=== PATIENT | female | born 1985 | race Caucasian/White ===

== ENCOUNTER 2016-08-06 09:57 | Emergency (ER) | payer MEDICAID ==
[~2016-08-06] VITALS: Ht 154.9 cm; Wt 49.4 kg
[2016-08-06] MEDS ORDERED: IV NS 0.9% 1,000 ML BAG IV ONE ×2 (11:00→12:30)
[2016-08-06] MEDS ORDERED: LORAZEPAM 1 MG TABLET PO ONE ×2 (11:00→14:30)
[2016-08-06] MEDS ORDERED: ASPIRIN 325 MG TABLET PO ONE (11:00)
[2016-08-06] MEDS ORDERED: ASPIRIN 325 MG TABLET ONE (11:01)
[2016-08-06] MEDS ORDERED: IV NS 0.9% 1,000 ML ONE ×2 (11:02→12:42)
[2016-08-06] MEDS ORDERED: IV SET PRIMARY 1 EA INFUS.SET MC ONE ×2 (11:02→12:42)
[2016-08-06] MEDS ORDERED: LORAZEPAM 1 MG TABLET ONE ×2 (11:02→14:18)
--- NOTE | 2016-08-06 11:05 | NUR ---
PT BIB SELF C/O MIDSTERNAL CP, ACHY IN CHARACTER 7/10 RADIATING TO BACK, NON-PROVOKED, SINCE LAST NIGHT. ALSO C/O INTERMITTENT HEADACHE SINCE THURSDAY. PT REPORTS SIGNIFICANT HISTORY OF ANXIETY WHICH SHE IS "WORKING TO CONTROL". SKIN WARM NONDIAPHORETIC. RESP EVEN UNLABORED. NAD NOTED. IN ER BED 09 ON MONITOR.
[2016-08-06 11:12] LABS: BASOPHILS # (AUTO) 0.2 /CMM (0.0-0.2); BASOPHILS % (AUTO) 1.5 % (0.0-2.0); EOSINOPHILS # (AUTO) 0.2 /CMM (0.0-0.7); EOSINOPHILS % (AUTO) 1.4 % (0.0-6.0); HEMATOCRIT 43 % (33-45); HEMOGLOBIN 14.6 g/dL (11.5-14.8); LYMPHOCYTES # (AUTO) 0.6 /CMM (0.8-4.8); LYMPHOCYTES % (AUTO) 4.2 % (20.0-44.0); MEAN CORPUSCULAR HEMOGLOBIN 31 PG (26.0-33.0); MEAN CORPUSCULAR HGB CONC 34 g/dl (31.0-36.0); MEAN CORPUSCULAR VOLUME 90 fL (82-100); MONOCYTES # (AUTO) 0.4 /CMM (0.1-1.30); MONOCYTES % (AUTO) 2.8 % (2.0-12.0); NEUTROPHILS # (AUTO) 11.9 /CMM (1.8-8.9); NEUTROPHILS % (AUTO) 90.1 % (43.0-81.0); PLATELET COUNT (AUTO) 242 /CMM (150-450); RDW COEFFICIENT OF VARIATION 11.9 (11.5-15.0); RED BLOOD CELL COUNT(AUTO) 4.78 MIL/uL (4.0-5.2); WHITE BLOOD COUNT (AUTO) 13.3 K/uL (4.3-11.0)
[2016-08-06 11:16] LABS: CALCIUM, SERUM 8.8 mg/dL (8.5-10.1); CARBON DIOXIDE 26 mmol/L (21-32); CHLORIDE 103 mmol/L (98-107); GLUCOSE 100 mg/dL (74-106); POTASSIUM 4.2 mmol/L (3.5-5.1); SODIUM SERUM 137 mmol/L (136-145); UREA NITROGEN, BLOOD 10 mg/dL (7-18)
[2016-08-06 11:21] LABS: ALANINE AMINOTRANSFERASE 7 U/L (12-78); ALBUMIN 4.6 g/dL (3.4-5.0); ASPARTATE AMINOTRANSFERASE 17 U/L (15-37); BILIRUBIN,DIRECT 0.1 mg/dL (0.0-0.2); BILIRUBIN,TOTAL 0.8 mg/dL (0.2-1.0); TOTAL PROTEIN, SERUM 8.5 g/dL (6.4-8.2)
[2016-08-06 11:23] LABS: TROPONIN I < 0.017 ng/mL (0.00-0.056)
[2016-08-06 11:34] LABS: D-DIMER 1.89 mg/L(FEU (0.17-0.50); INR 0.98 (0.87-1.13); PROTHROMBIN TIME 10.5 SECS (9.5-12.7)
[2016-08-06 11:36] LABS: ALKALINE PHOSPHATASE 48 U/L (46-116)
[2016-08-06 11:39] LABS: APPEARANCE,URINE Slightly Cloudy (CLEAR); BILIRUBIN,URINE SMALL (NEGATIVE); BLOOD, URINE Moderate Ery/uL (NEGATIVE); COLOR,URINE Yellow (YELLOW); KETONES,URINE 80 (NEGATIVE); LEUKOCYTE ESTERASE ,URINE Negative (NEGATIVE); NITRITE, URINE Negative (NEGATIVE); PROTEIN,URINE 30 mg/dl (NEGATIVE); UGLUCOSE Negative (NEGATIVE); UROBILINOGEN,URINE 0.2 EU/dL (0.2)
[2016-08-06 11:49] LABS: BACTERIA,URINE None seen /HPF (None Seen); SQUAMOUS EPITHELIAL CELL,UR Moderate /HPF (None Seen)
[2016-08-06 11:50] LABS: MUCUS,URINE Rare /LPF (None Seen)
--- NOTE | 2016-08-06 12:08 | NUR ---
RESTING QUIETLY, NAD NOTED. REPORTS NO CHANGE IN PAIN. MD NOTIFIED.
[2016-08-06] MEDS ORDERED: MORPHINE SULFATE INJ 4 MG/ML DISP.SYRIN ONE (12:13)
[2016-08-06] MEDS ORDERED: ONDANSETRON HCL/PF 4 MG/2 ML VIAL ONE (12:13)
[2016-08-06] MEDS ORDERED: IV NS 0.9% 250 ML IV ONE (12:28)
[2016-08-06] MEDS ORDERED: CT SWABBABLE VALVE TRANS SET 1 EA INFUS.SET MC ONE (12:28)
[2016-08-06] MEDS ORDERED: IOHEXOL-350 100 ML VIAL IV ONE (12:28)
[2016-08-06] MEDS ORDERED: MORPHINE SULFATE INJ 2 MG/ML DISP.SYRIN IV ONE (12:30)
[2016-08-06] MEDS ORDERED: ONDANSETRON HCL/PF 4 MG/2 ML VIAL IV ONE (12:30)
--- NOTE | 2016-08-06 12:32 | NUR ---
PT TRANSPORTED TO CT IN STABLE CONDITION
[2016-08-06 12:57] LABS: BAND % (MANUAL) 1 % (0.0-5.0); LYMPHOCYTES % (MANUAL) 3 % (16-48); MONOCYTES % (MANUAL) 5 % (0-11.0); NEUTROPHILS % (MANUAL) 91 (42-76)
--- NOTE | 2016-08-06 13:35 | NUR ---
RESTING QUIETLY, REPORTS ADEQUATE RELIEF OF PAIN WITH MEDICATION ORDERED
[2016-08-06 15:14] VITALS: BP 128/70
--- NOTE | 2016-08-06 15:16 | NUR ---
IV removed. Catheter intact and site benign. Pressure and 4x4 applied to site. No bleeding noted. Patient discharged to home in stable condition. Written and verbal after care instructions given. Patient verbalizes understanding of instruction. AMBULATORY WITH STEADY GAIT.
== END 2016-08-06 15:15 | disposition home or self-care (01) ==
LOC: ER 09:59
DX: R07.89 Other chest pain (principal); R00.0 Tachycardia, unspecified; R79.1 Abnormal coagulation profile; F41.9 Anxiety disorder, unspecified; R00.2 Palpitations; J45.909 Unspecified asthma, uncomplicated
CPT/HCPCS: 36415; 71010; 71275; 80048; 80076; 81001; 83605; 84443; 84484; 84703; 85025; 85378; 85730; 93005; 96361; 96374; 96375; 99285; A4606; J2270; J2405; J7030 ×2; J7050; Q9967; Z7610; 81000-TC